=== PATIENT | male | born 1960 | race Caucasian/White ===

== ENCOUNTER 2017-03-11 16:32 | Emergency (ER) | payer BC ==
[~2017-03-11] VITALS: Ht 182.9 cm; Wt 102.0 kg
[2017-03-11 17:26] LABS: BASOPHIL % 0.4 % (0-2)
[2017-03-11 17:29] LABS: PLATELET COUNT 428 x10^3mcL (130-400); RED CELL DISTRIBUTION WIDTH 15.9 % (11.5-14.5)
[2017-03-11 17:37] LABS: CALCIUM 8.8 mg/dL (8.5-10.1); CARBON DIOXIDE 22.8 mmol/L (21-32); CHLORIDE SERUM 107 mmol/L (98-107); CREATININE SERUM 0.8 mg/dL (0.7-1.3); GFR1 > 60 mL/min; GLUCOSE SERUM 136 mg/dL (74-106); SODIUM SERUM 142 mmol/L (136-145)
[2017-03-11 17:40] LABS: ALBUMIN 3.6 g/dL (3.4-5.0); ALKALINE PHOSPHATASE 86 U/L (46-116); ALT/SGPT 23 U/L (16-63); AST/SGOT 13 U/L (15-37); BILIRUBIN TOTAL 0.45 mg/dL (0.20-1.00); TOTAL PROTEIN, SERUM 7.5 g/dL (6.4-8.2)
[2017-03-11 17:41] LABS: CHOLESTEROL 247 mg/dL (<200)
[2017-03-11 19:37] VITALS: BP 109/71
== END 2017-03-11 19:37 | disposition home or self-care (01) ==
LOC: ED 16:32
PROVIDERS: Specialist
DX: S13.4XXA Sprain of ligaments of cervical spine, initial encounter (principal); S00.83XA Contusion of other part of head, initial encounter; E11.9 Type 2 diabetes mellitus without complications; Z79.899 Other long term (current) drug therapy; Z79.4 Long term (current) use of insulin; W17.89XA Other fall from one level to another, initial encounter; K21.9 Gastro-esophageal reflux disease without esophagitis; Y93.89 Activity, other specified; Y99.8 Other external cause status; Y92.89 Other specified places as the place of occurrence of the external cause
CPT/HCPCS: 83880; G0480; J7030; Q0092

== ENCOUNTER 2017-03-19 14:10 | Inpatient (IN) | payer BC ==
[~2017-03-19] VITALS: Ht 182.9 cm; Wt 105.2 kg
[2017-03-19 14:41] LABS: BASOPHIL % 0.1 % (0-2); PLATELET COUNT 347 x10^3mcL (130-400)
[2017-03-19 14:43] LABS: RED CELL DISTRIBUTION WIDTH 14.7 % (11.5-14.5)
[2017-03-19 14:50] LABS: CARBON DIOXIDE 28.4 mmol/L (21-32); CHLORIDE SERUM 106 mmol/L (98-107); CREATININE SERUM 0.9 mg/dL (0.7-1.3); GFR1 > 60 mL/min; GLUCOSE SERUM 88 mg/dL (74-106); SODIUM SERUM 142 mmol/L (136-145)
[2017-03-19 14:56] LABS: ALBUMIN 3.5 g/dL (3.4-5.0); ALKALINE PHOSPHATASE 82 U/L (46-116); ALT/SGPT 24 U/L (16-63); AST/SGOT 13 U/L (15-37); BILIRUBIN TOTAL 0.2 mg/dL (0.20-1.00); TOTAL PROTEIN, SERUM 7.2 g/dL (6.4-8.2)
[2017-03-19] MEDS ORDERED: DEXAMETHASONE2 MG PO (16:29)
[2017-03-19] MEDS ORDERED: GABAPENTIN300 M4 PO (16:30)
[2017-03-19] MEDS ORDERED: HUMALOG KW100 UNIT/1 SQ (16:31)
[2017-03-19] MEDS ORDERED: LANTUS SOLOS100 U/M1 SQ (16:31)
[2017-03-19] MEDS ORDERED: KEPPRA500 MG PO (16:32)
[2017-03-19] MEDS ORDERED: LEVOTHYROXINE0.15 M2 PO (16:34)
[2017-03-19] MEDS ORDERED: PANTOPRAZOLE SO40 M1 PO (16:34)
[2017-03-19] MEDS ORDERED: ZOLOFT50 MG PO (16:34)
[2017-03-19] MEDS ORDERED: TOPAMAX25 MG PO (16:36)
[2017-03-19] MEDS ORDERED: TOPCARE 8 HOUR650 MG PO (16:37)
[2017-03-19] MEDS ORDERED: LORAZEPAM1 MG PO (16:37)
[2017-03-19] MEDS ORDERED: ZOFRAN8 MG PO (16:38)
[2017-03-19] MEDS ORDERED: POLYETHYLENE GL1 PO1 PO (16:41)
[2017-03-19] MEDS ORDERED: TRAZODONE50 M1 PO (16:41)
[2017-03-19 16:43] LABS: MAGNESIUM 2.3 mg/dL (1.8-2.4); PHOSPHOROUS 4.2 mg/dL (2.5-4.9)
[2017-03-19 16:51] LABS: T3 TOTAL 0.67 ng/mL
[2017-03-19 16:55] LABS: FREE T4 0.89 ng/dL (0.76-1.46); FREE THYROXINE INDEX 3.1 ug/dL (1.4-4.5); T4(THYROXINE) 8.1 ug/dL (4.7-13.3)
[2017-03-19 17:04] LABS: CHOLESTEROL/HDL RATIO 3.7
[2017-03-19 17:12] VITALS: BP 135/90
[2017-03-19 17:16] VITALS: Ht 182.9 cm; Wt 105.2 kg
[2017-03-19 18:26] LABS: microscopic required? YES; urine erythrocyte NEGATIVE (NEGATIVE)
[2017-03-19 18:35] LABS: AMPHETAMINE QUAL UR NONE DETECTED (NEG <=1000)
[2017-03-19 21:10] VITALS: BP 117/83
[2017-03-20 05:47] VITALS: BP 111/68
[2017-03-20 09:42] VITALS: BP 104/63
[2017-03-20 13:57] VITALS: BP 112/77
[2017-03-20 18:10] VITALS: BP 144/93
[2017-03-20 19:25] VITALS: BP 117/80
[2017-03-20 21:01] VITALS: BP 125/88
[2017-03-21 05:58] VITALS: BP 125/87
[2017-03-21 06:22] LABS: BASOPHIL % 0.3 % (0-2); PLATELET COUNT 332 x10^3mcL (130-400)
[2017-03-21 06:33] LABS: RED CELL DISTRIBUTION WIDTH 14.9 % (11.5-14.5)
[2017-03-21 10:22] VITALS: BP 109/68
[2017-03-21 12:47] VITALS: BP 111/77
== END 2017-03-21 17:24 | DRG 73 ==
LOC: ED 14:10 → DU 15:57
PROVIDERS: Emergency Medicine; ADMIT Family Medicine
DX: G90.8 Other disorders of autonomic nervous system (principal); N17.0 Acute kidney failure with tubular necrosis; D68.69 Other thrombophilia; S00.03XA Contusion of scalp, initial encounter; E11.65 Type 2 diabetes mellitus with hyperglycemia; E78.00 Pure hypercholesterolemia, unspecified; E03.9 Hypothyroidism, unspecified; W18.2XXA Fall in (into) shower or empty bathtub, initial encounter; R26.0 Ataxic gait; G40.909 Epilepsy, unspecified, not intractable, without status epilepticus; G47.00 Insomnia, unspecified; F32.9 Major depressive disorder, single episode, unspecified; Z68.31 Body mass index [BMI] 31.0-31.9, adult; Z85.841 Personal history of malignant neoplasm of brain; Y93.89 Activity, other specified; Y99.8 Other external cause status; Z90.89 Acquired absence of other organs; Y92.121 Bathroom in nursing home as the place of occurrence of the external cause; Z79.4 Long term (current) use of insulin
CPT/HCPCS: 82962; 83880; 84439; 97110-GP; J1815; J1885; J2270; J7030; J8540; Q0092

== ENCOUNTER 2017-04-24 05:28 | Inpatient (IN) | payer BC ==
[~2017-04-24] VITALS: Ht 182.9 cm; Wt 101.7 kg
[~2017-04-24 05:28] MED LIST: DEXAMETHASONE2 MG PO; GABAPENTIN300 M4 PO; HUMALOG KW100 UNIT/1 SQ; KEPPRA500 MG PO; LANTUS SOLOS100 U/M1 SQ; LEVOTHYROXINE0.15 M2 PO; LORAZEPAM1 MG PO; PANTOPRAZOLE SO40 M1 PO; POLYETHYLENE GL1 PO1 PO; TOPAMAX25 MG PO; TOPCARE 8 HOUR650 MG PO; TRAZODONE50 M1 PO; ZOFRAN8 MG PO; ZOLOFT50 MG PO
[2017-04-24 06:12] LABS: BASOPHIL % 0.3 % (0-2); PLATELET COUNT 336 x10^3mcL (130-400); RED CELL DISTRIBUTION WIDTH 13.7 % (11.5-14.5)
[2017-04-24 06:20] LABS: CALCIUM 8.9 mg/dL (8.5-10.1); CARBON DIOXIDE 28.6 mmol/L (21-32); CHLORIDE SERUM 107 mmol/L (98-107); CREATININE SERUM 0.8 mg/dL (0.7-1.3); GFR1 > 60 mL/min; GLUCOSE SERUM 188 mg/dL (74-106); POTASSIUM SERUM 3.7 mmol/L (3.5-5.1); SODIUM SERUM 144 mmol/L (136-145)
[2017-04-24 06:25] LABS: ALKALINE PHOSPHATASE 97 U/L (46-116); ALT/SGPT 19 U/L (16-63); AST/SGOT 9 U/L (15-37); BILIRUBIN TOTAL 0.31 mg/dL (0.20-1.00); TOTAL PROTEIN, SERUM 7.3 g/dL (6.4-8.2)
[2017-04-24 06:26] LABS: ALBUMIN 3.1 g/dL (3.4-5.0)
[2017-04-24 08:02] LABS: MAGNESIUM 2.2 mg/dL (1.8-2.4); PHOSPHOROUS 3.2 mg/dL (2.5-4.9)
[2017-04-24 08:04] LABS: FREE T4 0.87 ng/dL (0.76-1.46); FREE THYROXINE INDEX 2.5 ug/dL (1.4-4.5); T4(THYROXINE) 6.8 ug/dL (4.7-13.3)
[2017-04-24 08:07] VITALS: BP 139/90
--- NOTE | 2017-04-24 08:19 | NUR ---
RECEIEVED FROM ED TO ROOM 218A. UPON ARRIVAL ASKING FOR SHOES AND CELL PHONE, CALLED ED, THEY WILL SEE IF THEY CAN FIND THEM. ALERT AND ORIENTED, SLOW RESPONSE, BUT APPROPRIATE, PLEASAMT MAN. DENIES PAIN AND NAUSEA. ROOM AIR, NO SOB NOTED, 02 SAT 100%. TELE 20, HR 45, DENIES CHEST PAIN. MOVES ALL EXTREMTITIES. BRUISING NOTED, REPORTS IT IS FROM THE "NEEDLE POKES" IN ED. USED URINAL UPON ARRIVAL. REPORTS CONSTIPATION, HASN'T HAD BM IN 2 DAYS. SMOKES ONE CIGARETTE A WEEK AND DRINKS THREE TIMES A WEEK. REPORTS HAS PRESENT BRAIN CANCER. ORIENTED TO ROOM AND CALL LIGHT.
[2017-04-24] MEDS ORDERED: PREVIDENT 5000100 ML DE (08:20)
--- NOTE | 2017-04-24 08:20 | NUR ---
PER REPORT FROM ED, PATIENT IS ON HOSPICE.
[2017-04-24] MEDS ORDERED: SENEXON8.6 MG PO (08:21)
[2017-04-24] MEDS ORDERED: NEU300 PO (08:21)
[2017-04-24] MEDS ORDERED: TYLENOL WITH CO1 TA2 PO (08:22)
--- NOTE | 2017-04-24 08:37 | NUR ---
DAUGHTER MEET WAS CALLED AND MADE AWARE OF ADMISSION AT PATIENTS REQUEST.
--- NOTE | 2017-04-24 09:48 | NUR ---
SPOKE WITH DR RICHEY AND MADE AWARE REQUESTING TO EAT.
--- NOTE | 2017-04-24 09:48 | NUR ---
REQUESTING TO EAT. PAGED DR RICHEY.
--- NOTE | 2017-04-24 10:01 | NUR ---
CALLED AND SPOKE WITH MALICK AT [facility], SHE REPORTS THAT CELLPHONE AND SHOES ARE AT [facility].
[2017-04-24 11:01] LABS: T3 TOTAL 0.68 ng/mL
--- NOTE | 2017-04-24 12:06 | NUR ---
UP WITH PT.
--- NOTE | 2017-04-24 12:49 | NUR ---
ASSISTED WITH LUNCH SET UP, NO DISTRESS NOTED.
--- NOTE | 2017-04-24 12:50 | NUR ---
RECEIVED CALL FROM [facility], MADE AWARE PATIENT WAS ADMITTED.
--- NOTE | 2017-04-24 14:01 | NUR ---
SON BRITTANY STEFANIE, WANTS TO SPEAK WITH DOCTOR, PAGED DR RICHEY.
[2017-04-24 14:07] VITALS: BP 109/75
--- NOTE | 2017-04-24 14:07 | NUR ---
SPOKE WITH DR RICHEY AND MADE HIM AWARE SON BEDSIDE AND WOULD LIKE TO TALK WITH HIM.
--- NOTE | 2017-04-24 14:13 | NUR ---
DR RICHEY IN TO SPEAK WITH SHALINI SOTO.
--- NOTE | 2017-04-24 15:45 | NUR ---
PAGED DR RICHEY. PHARMACIST ASKING WHY DECADRON WAS ORDERED.
[2017-04-24 15:49] LABS: microscopic required? NO
--- NOTE | 2017-04-24 16:00 | NUR ---
DR RICHEY HAS TALKED WITH PHARMACIST.
[2017-04-24 16:08] LABS: urine erythrocyte NEGATIVE (NEGATIVE)
[2017-04-24 16:16] LABS: AMPHETAMINE QUAL UR NONE DETECTED (NEG <=1000)
[2017-04-24 16:34] VITALS: BP 116/65
--- NOTE | 2017-04-24 16:50 | NUR ---
CALM AT THIS TIME, NO DISTRESS NOTED. TOOK MEDS WITHOUT DIFFICULTY.
--- NOTE | 2017-04-24 17:52 | NUR ---
ASSISTED WITH DINNER SET UP, ATE 80% OF DINNER.
--- NOTE | 2017-04-24 18:17 | NUR ---
EARLIER RECEIVED CALL FROM [facility], THEY ARE PATIENTS HOSPICE COMPANY.
--- NOTE | 2017-04-24 18:44 | NUR ---
RESTING QUIETLY IN BED, NO DISTRESS NOTED.
[2017-04-24 19:30] VITALS: BP 117/86
--- NOTE | 2017-04-24 19:30 | NUR ---
RECEIVED PT AWAKE ALERT TO NAME AND BIRTHDAT.CONFUSED WITH DATE/TIME/YEAR,VERBALLY RESPONSIVE SLOW TO RESPONSE.DENIES ANY PAIN AT THIS TIME.BP 117/86 MMHG,HR 56.NURSE AT BEDSIDE TO ASSIST WITH ADLS.WILL CONTINUE TO MONITOR.
--- NOTE | 2017-04-25 04:45 | NUR ---
PT SLEPT WELL WITH NURSE AT BEDSIDE TO ASSIST WITH ADLS.NO FALLS/INJURY NOTED.DENIES ANY PAIN OR DISCOMFORT.ALL NEEDS MET.WILL CONTINUE TO MONITOR.
[2017-04-25 06:17] VITALS: BP 112/79
[2017-04-25 06:28] LABS: CALCIUM 8.3 mg/dL (8.5-10.1); CARBON DIOXIDE 20.9 mmol/L (21-32); CHLORIDE SERUM 109 mmol/L (98-107); CREATININE SERUM 0.6 mg/dL (0.7-1.3); GFR1 > 60 mL/min; GLUCOSE SERUM 227 mg/dL (74-106); POTASSIUM SERUM 3.7 mmol/L (3.5-5.1); SODIUM SERUM 140 mmol/L (136-145)
[2017-04-25 07:07] LABS: BASOPHIL % 0.3 % (0-2); PLATELET COUNT 314 x10^3mcL (130-400); RED CELL DISTRIBUTION WIDTH 13.4 % (11.5-14.5)
--- NOTE | 2017-04-25 07:56 | NUR ---
PT RECEIVED DURING CHANGE OF SHIFT, A/OX2, TELE 20, SB, DENIES CHEST PAIN, PULSES PRESENT, LUNGS DIM ON RA, DENIES SOB, BREATHING EVEN AND UNLABORED, BOWEL SOUNDS ACTIVE, LBM 04/24/17, INCONTINENT OF URINE AT TIMES, GENERALIZED WEAKNESS, C/O HEADACHE IN RIGHT BACK SIDE OF HEAD 03/04, WILL MEDICATE PER EMAR, NS TO LAC INFUSING AT 150ML/HR, IV WNL, CALM AND COOPERATIVE, CALL LIGHT WITHIN REACH, TRANSITION ASSISTANT AT BEDSIDE ASSISTING WITH ADLS, WILL CONTINUE TO MONITOR.
[2017-04-25 08:30] VITALS: BP 115/80
--- NOTE | 2017-04-25 09:48 | NUR ---
PT DENIES SOB, STATES HEAD PAIN IS "BETTER", TELECASTING ENGINEER AT BEDSIDE TO ASSIST WITH ADLS, CALL LIGHT WITHIN REACH, WILL CONTINUE TO MONITOR.
--- NOTE | 2017-04-25 10:10 | NUR ---
PT ASLEEP, NO INDICATION OF PAIN, BREATHING EVEN AND UNLABORED, CALL LIGHT WITHIN REACH, WILL CONTINUE TO MONITOR.
--- NOTE | 2017-04-25 11:23 | NUR ---
PT DENIES SOB, DENIES PAIN, BS 268 WILL COVER PER RISS, PHYSICAL THERAPY AT BEDSIDE, CALL LIGHT WITHIN REACH, LEGAL CASHIER AT BEDSIDE TO ASSIST WITH ADLS, WILL CONTINUE TO MONITOR.
--- NOTE | 2017-04-25 12:18 | NUR ---
PT DENIES SOB, DENIES PAIN, SON AT BEDSIDE, CALL LIGHT WITHIN REACH, WILL CONTINUE TO MONITOR.
--- NOTE | 2017-04-25 13:17 | NUR ---
PT ASLEEP, NO INDICATION OF PAIN, BREATHING EVEN AND UNLABORED, CALL LIGHT WITHIN REACH, WILL CONTINUE TO MONITOR.
--- NOTE | 2017-04-25 14:17 | NUR ---
PT DENIES SOB, DENIES PAIN, LUNCH TRAY AT BEDSIDE, ASSOCIATE DIRECTOR OF NURSING AT BEDSIDE TO ASSIST WITH LUNCH, CALL LIGHT WITHIN REACH, WILL CONTINUE TO MONITOR.
[2017-04-25 14:43] VITALS: BP 124/90
--- NOTE | 2017-04-25 15:25 | NUR ---
PT ASLEEP, NO INDICATION OF PAIN, BREATHING EVEN AND UNLABORED, CALL LIGHT WITHIN REACH, WILL CONTINUE TO MONITOR.
--- NOTE | 2017-04-25 16:35 | NUR ---
PT AROUSED FROM SLEEP, DENIES SOB, DENIES PAIN, ASSISTED CROP GRAIN OR LIVESTOCK FARMER WITH ADLS FOR PT, CALL LIGHT WITHIN REACH, CROP GRAIN OR LIVESTOCK FARMER AT BEDSIDE, WILL CONTINUE TO MONITOR.
[2017-04-25 16:56] VITALS: BP 114/81
--- NOTE | 2017-04-25 18:15 | NUR ---
PT DENIES SOB, DENIES PAIN, SON AT BEDSIDE, CALL LIGHT WITHIN REACH, WILL ENDORSE PT TO NEXT SHIFT.
[2017-04-25 20:00] VITALS: BP 113/80
--- NOTE | 2017-04-25 20:00 | NUR ---
RECEIVED PT AWAKE ALERT TO NAME AND BIRTHDATE.RECOGNIZES FAMILY MEMBERS WHO'S AT BEDSIDE.SLOW TO RESPONSE.DENIES HEADACHE AT THIS TIME.NURSE AT BEDSIDE TO ASSIT WITH ADLS.PADDED RAILS IN PLACED.WILL CONTINUE TO MONITOR.
--- NOTE | 2017-04-26 04:50 | NUR ---
PT SLEPT WELL ALL NIGHT WITH NURSE AT BEDSIDE TO ASSIST WITH ADLS.NO FALLS/INJURY NOTED.PADDED RAILS IN PLACED.ALL NEEDS ANTICIPATED.WILL CONTINUE TO MONITOR.
--- NOTE | 2017-04-26 05:59 | NUR ---
BM X1.MORNING CARE RENDERED.
[2017-04-26 06:21] VITALS: BP 121/82
[2017-04-26 06:44] LABS: BASOPHIL % 0.1 % (0-2); PLATELET COUNT 324 x10^3mcL (130-400); RED CELL DISTRIBUTION WIDTH 13.1 % (11.5-14.5)
[2017-04-26 06:57] LABS: CALCIUM 8.7 mg/dL (8.5-10.1); CARBON DIOXIDE 22.7 mmol/L (21-32); CHLORIDE SERUM 110 mmol/L (98-107); CREATININE SERUM 0.7 mg/dL (0.7-1.3); GFR1 > 60 mL/min; GLUCOSE SERUM 75 mg/dL (74-106); PHOSPHOROUS 3.9 mg/dL (2.5-4.9); POTASSIUM SERUM 3.1 mmol/L (3.5-5.1); SODIUM SERUM 142 mmol/L (136-145)
--- NOTE | 2017-04-26 08:00 | NUR ---
ALERT/ORIENTED TO PERSON. SLOW SPEECH. SEIZURE PRECAUTION. TELE#51 = SB; HR = 51. NO RESP DISTRESS ON RA. O2 SAT 95%. FINISHED 50% OF BREAKFAST. NO N/V. HAD LOOSE BM THIS AM. VOID VIA URINAL. IVF OF NS 100CC/HR INFUSING WELL TO LAC. IV SITE CLEAN. C/O HEADACHE, BUT UNABLE TO RANT SEVERITY. TYLENOL 650MG PO WILL BE GIVEN. CALL LIGHT IN REACH.
--- NOTE | 2017-04-26 08:50 | NUR ---
C/O HEADACHE, BUT UNABLE TO RATE SEVERITY. TYLENOL 650MG PO GIVEN. CONTINUE MONITOR.
--- NOTE | 2017-04-26 09:15 | NUR ---
DR. VALLE AND MEDICAL TEAM MADE MORNING ROUND. PLAN OF CARE, INCLUDED HOSPICE CARE WOULD DISCUSSED WITH PATIENT'S FAMILY.
[2017-04-26 10:10] VITALS: BP 134/72
--- NOTE | 2017-04-26 10:47 | NUR ---
KCL 40 MEQ PO GIVEN FOR POTASSIUM LEVEL 3.1 THIS INVENTORY ASSISTANT.
--- NOTE | 2017-04-26 12:17 | NUR ---
C/O HEADACHE. NORCO 7.5/325 PO GIVEN.
[2017-04-26 13:21] VITALS: BP 121/90
--- NOTE | 2017-04-26 16:13 | NUR ---
PHYSICAL THERAPY DAILY NOTES CO-SIGN All documentation done by the Certified Medication Technician/student for 04/26/17 has been reviewed. I agree with the documentation. Reviewed/Co-Signed by: Wendy Dumas PT Documentation Done by:BRENDA BENTON SPTA POC REVIEWED W/ SUPERVISOR POLICY CHANGE CLERKS, SPTA; SLOW TO RESPOND, FORGETFUL, ORIENTED TO SELF, POOR MOTOR CONTROL, NURSE SITTER IN ROOM; UNSTEADY GAIT, TENDS TO SIT DOWN WITHOUT WARNING; BED ALARM ON; SLOW IN TASK FACILITATION; DEMO DEC SAFETY AWARENESS; H/O MULT FALLS.
--- NOTE | 2017-04-26 18:04 | NUR ---
CONDITION STABLE. DAUGHTER AT BED SIDE. HAD SLEEPING AFTER NORCO 7.5 GIVEN. TOLERATED DINNER BY FEEDING. ENDORSED CARE TO [facility] NURSE.
[2017-04-26 18:20] VITALS: BP 111/75
--- NOTE | 2017-04-26 19:35 | NUR ---
PT RECEIVED LAYING IN BED WITH DAUGHTER AT BEDSIDE. PT IS A/O X2, TO PERSON AND . HE IS ON TELE MONITOR #20, SINUS EARLENE AT 52 WITH PVC. HE DENIES ANY CHEST PAIN AT THIS TIME. PT DENIES ANY DIZZINESS, LIGHTHEADEDNESS, OR HEADACHE AT THIS TIME. IV SITE AT [facility] IS DRY, PATENT, AND INTACT. IV FLUID INFUSING PER DOCTOR'S ORDER. BED IN LOWEST POSITON. SITTER AT BEDSIDE FOR SAFETY. CALL LIGHT WITHIN REACH. WILL CONTINUE TO MONITOR
[2017-04-26 20:36] VITALS: BP 135/92
--- NOTE | 2017-04-27 00:49 | NUR ---
PT IS SLEEPING SOUNDLY IN BED. HE DOES NOT APPEAR TO BE IN ANY DISTRESS OR PAIN AT THIS TIME. SITTER AT BEDSIDE. ROOM IS FREE AND CLEAR OF ANY HAZARDS. CALL LIGHT WITHIN REACH. WILL CONTINUE TO MONITOR.
--- NOTE | 2017-04-27 05:03 | NUR ---
PATIENT RESTED THROUGHOUT THE NIGHT. NO DISTRESS NOTED. NO C/O PAIN/DISCOMFORT. ALL NEEDS MET. SAFETY AND COMFORT MEASURES MAINTAINED. BED IN LOWEST POSITION. CALL LIGHT WITHIN REACH. SITTER AT BEDSIDE FOR SAFETY. WILL CONTINUE TO MONITOR AND ENDORSE TO NEXT SHIFT NURSE.
[2017-04-27 05:45] VITALS: BP 123/87
[2017-04-27 06:13] LABS: CARBON DIOXIDE 28.1 mmol/L (21-32); CHLORIDE SERUM 107 mmol/L (98-107); CREATININE SERUM 0.8 mg/dL (0.7-1.3); GFR1 > 60 mL/min; GLUCOSE SERUM 74 mg/dL (74-106); POTASSIUM SERUM 3.6 mmol/L (3.5-5.1); SODIUM SERUM 141 mmol/L (136-145)
--- NOTE | 2017-04-27 07:10 | NUR ---
BEDSIDE REPORT RECEIVED FROM [facility] SHIFT NURSE AT THIS TIME. PATIENT ASLEEP, NO SIGNS OF DISTRESS NOTED, BREATHING EVEN AND UNLABORED. ALL SAFETY MEASURES IN PLACE, NURSE AID AT BEDSIDE FOR SAFETY, WILL CONTINUE TO MONITOR.
[2017-04-27 08:00] VITALS: BP 132/91
--- NOTE | 2017-04-27 08:00 | NUR ---
PATIENT ASLEEP, EASILY AROUSED VIA VERBAL STIMULI, NO SIGNS OF DISTRESS NOTED. DENIES CHEST PAIN, NO DIZZINESS, ON ROOM AIR, ORIENTED TO PERSON ONLY, FORGETFUL, IMPAIRED RECENT/REMOTE MEMORY. NS INFUSING TO LAC AT 100 ML/HR, NO REDNESS OR INFILTRATION NOTED TO SITE. ALL SAFETY MEASURES IN PLACE, NURSE AID AT BEDSIDE FOR SAFETY, CALM AND COOPERATIVE WITH CARE, WILL CONTINUE TO MONITOR.
--- NOTE | 2017-04-27 08:50 | NUR ---
ROUNDS MADE AT THIS TIME WITH MD TEAM, CHARGE NURSE LEONA, AND DR OCLON. PATIENT AWAKE, ALERT, NO SIGNS OF DISTRESS NOTED. PATIENT TO RETURN TO [place] TODAY WITH [facility] HOSPICE CONTINUED. ALL SAFETY MEASURES IN PLACE, NURSE AID AT BEDSIDE FOR SAFETY, WILL CONTINUE TO MONITOR.
[2017-04-27] MEDS ORDERED: APAP/HYDROCODON1 T13 PO (09:35)
[2017-04-27] MEDS ORDERED: MECLIZINE HCL12.5 MG PO (09:36)
--- NOTE | 2017-04-27 12:32 | NUR ---
PATIENT AWAKE, ALERT, NO SIGNS OF DISTRESS NOTED, ALL NEEDS ATTENDED TO. NURSE AID AT BEDSIDE FOR SAFETY, CALL LIGHT IN HAND, WILL CONTINUE TO MONITOR.
[2017-04-27 12:53] VITALS: Ht 182.9 cm; Wt 101.7 kg
[2017-04-27 13:27] VITALS: BP 132/91
--- NOTE | 2017-04-27 16:14 | NUR ---
PT NOTES SPOKE W/ RN "DARÍO" REGARDING PATIENT @ 1322, PER RN PATIENT WILL BE D/C SOON. SPOKE W/ PATIENT'S SON "CELSA" BY BEDSIDE. PATIENT & PATIENT'S SON "CELSA" DECLINING THERAPY AT THIS TIME D/T D/C FROM HOSPITAL. PATIENT/SON EDUCATED ON IMPORTANCE OF THERAPY. PATIENT LEFT IN CARE OF SON. PRIMARY PHYSICAL THERAPIST AWARE. [facility]
== END 2017-04-27 14:15 | disposition hospice, home (50) | DRG 55 ==
LOC: ED 05:28 → DU 06:31 → MU 04-27 06:58
PROVIDERS: Emergency Medicine Emergency Medical Services; ADMIT Family Medicine
DX: C71.9 Malignant neoplasm of brain, unspecified (principal); E44.0 Moderate protein-calorie malnutrition; R00.1 Bradycardia, unspecified; E11.9 Type 2 diabetes mellitus without complications; D64.9 Anemia, unspecified; F32.9 Major depressive disorder, single episode, unspecified; Z68.30 Body mass index [BMI] 30.0-30.9, adult; G90.9 Disorder of the autonomic nervous system, unspecified; E02 Subclinical iodine-deficiency hypothyroidism
CPT/HCPCS: 82962; 83880; 84439; 97110-GP; 97530-GP; J1815; J3490; J7030; J8540; Q0092